=== PATIENT | male | born 1970 | race Caucasian/White ===

== ENCOUNTER 2023-02-24 00:34 | Emergency (ER) | payer OTHER, SELFPAY ==
[2023-02-24 00:37] VITALS: BP 180/100; PULSE 99; RESP 16; TEMP 36.4; O2SAT 98; BMI 22.0
--- NOTE | 2023-02-24 00:56 | XR_ITS ---
The [address] [address] Patient Name: JULIENNE GALINDO MRN: [id number] date: 1970 Sex: M Assigned Patient Location: ER Current Patient Location: Accession/Order Number: [id number] Exam Date: 02/24/2023 01:00 Report Date: 02/24/2023 01:51 At the request of: KIZZY MARKER Procedure: XR ankle LT 2V XR foot LT min 3V, XR ankle LT 2V: HISTORY: felt a pop in left foot felt a pop in left foot COMPARISON: None available. TECHNIQUE: 2 left ankle and 3 left foot views are submitted. FINDINGS: Left foot: No definitive acute fractures identified in the left foot. There is an acute avulsion fracture arising from the distal tip of the left fibula which is better evaluated on the left foot x-ray. There is degeneration of the first tarsometatarsal joint and first metatarsophalangeal joint. There is soft tissue swelling. Left ankle: The acute avulsion fracture of the distal left fibula is better evaluated on the left foot x-ray from the same day. The remaining osseous structures of the left ankle are grossly unremarkable. There is diffuse soft tissue swelling. XR/XR ankle LT 2V IMPRESSION: Findings are consistent with an acute avulsion fracture of the distal fibula which is better appreciated on the left foot x-ray. Electronically authenticated by: CHIRAG AKHTAR Date: 02/24/2023 01:51
--- NOTE | 2023-02-24 00:56 | XR_ITS ---
The [address] [address] Patient Name: JULIENNE GALINDO MRN: [id number] date: 1970 Sex: M Assigned Patient Location: ER Current Patient Location: Accession/Order Number: [id number] Exam Date: 02/24/2023 01:00 Report Date: 02/24/2023 01:51 At the request of: KIZZY MARKER Procedure: XR foot LT min 3V XR foot LT min 3V, XR ankle LT 2V: HISTORY: felt a pop in left foot felt a pop in left foot COMPARISON: None available. TECHNIQUE: 2 left ankle and 3 left foot views are submitted. FINDINGS: Left foot: No definitive acute fractures identified in the left foot. There is an acute avulsion fracture arising from the distal tip of the left fibula which is better evaluated on the left foot x-ray. There is degeneration of the first tarsometatarsal joint and first metatarsophalangeal joint. There is soft tissue swelling. Left ankle: The acute avulsion fracture of the distal left fibula is better evaluated on the left foot x-ray from the same day. The remaining osseous structures of the left ankle are grossly unremarkable. There is diffuse soft tissue swelling. XR/XR foot LT min 3V IMPRESSION: Findings are consistent with an acute avulsion fracture of the distal fibula which is better appreciated on the left foot x-ray. Electronically authenticated by: CHIRAG AKHTAR Date: 02/24/2023 01:51
--- NOTE | 2023-02-24 00:57 | ED.LOWEXI1 ---
HPI - Extremity Injury (Lower) General Chief Complaint: Extremity Injury, Lower Stated Complaint: L FOOT INJURY Time Seen by Provider: 02/24/23 00:49 Source: patient Mode of arrival: walk-in Limitations: no limitations History of Present Illness HPI Narrative: This 53-year-old male presents for evaluation of left foot and ankle pain. The patient states he has bbeen having some left foot pain for the past several weeks and today stepped up on a platform at work and felt a popping sensation. He states he felt like the back portion of his foot and heel was ripped off. He thinks that he tore his Achilles tendon. He states he saw black when he felt a popping sensation did not pass out or fall. He has pain across the mid foot and posterior aspect of the ankle. No additional injuries or complaints. His brother drove him to the emergency department. Related Data Allergies Allergy/AdvReac Type Severity Reaction Status Date / Time No Known Drug Allergies Allergy Verified 02/24/23 00:43 Review of Systems ROS Status of ROS 10 or more systems reviewed and unremarkable except as noted in history and below [facility] Social History Smoking status: Current every day smoker Exam Narrative Exam Narrative: Nurses note and vital signs reviewed and patient is not hypoxic. Blood pressure was noted to be elevated at 180/100. General: Thin, uncomfortable appearing adult male, no respiratory distress Skin: Warm, dry, no pallor noted. There is no rash noted. Head: Normocephalic, atraumatic Eye: Normal conjunctiva, no drainage, EOMI. PERRL Cardiovascular: Regular Rate and Rhythm Respiratory: Patient is in no distress, no accessory muscle use, lungs are clear to auscultation, no wheezing, rales or rhonchi Back: non-tender, no CVA tenderness bilaterally to percussion. Musculoskeletal: There Is mild lower extremity swelling on both legs at the patient's sock line. There Tenderness across the mid foot including the base of the 5th metatarsal and arch, there is tenderness in the posterior heel but no notable Achilles injury or swelling above the Achilles insertion. Patient states he has pain in his foot with movement of his toes and was reluctant to move his toes but was to move his toes at my request. Feet are warm and sensate, dorsalis pedis and posterior tibialis pulses are brisk and equal bilaterally, Jay test is negative Neurological: A&O x4, normal speech Psychiatric: Cooperative, anxious Constitutional Vital Signs, click to edit/add: Last Vital Signs Temp 97.6 F 02/24/23 00:37 Pulse 99 H 02/24/23 00:37 Resp 16 02/24/23 00:37 BP 180/100 H 02/24/23 00:37 Pulse Ox 98 02/24/23 00:37 O2 Del Method Room Air 02/24/23 00:37 Course Vital Signs Vital signs: Vital Signs Temperature 97.6 F 02/24/23 00:37 Pulse Rate 99 H 02/24/23 00:37 Respiratory Rate 16 02/24/23 00:37 Blood Pressure 180/100 H 02/24/23 00:37 Pulse Oximetry 98 02/24/23 00:37 Oxygen Delivery Method Room Air 02/24/23 00:37 Temperature 97.6 F 02/24/23 00:37 Pulse Rate 99 H 02/24/23 00:37 Respiratory Rate 16 02/24/23 00:37 Blood Pressure 180/100 H 02/24/23 00:37 Pulse Oximetry 98 02/24/23 00:37 Oxygen Delivery Method Room Air 02/24/23 00:37 MDM - Extremity Injury (Lower) MDM Narrative Medical decision making narrative: 53-year-old male, smoker, presents for evaluation of left foot pain. He has pain in the midfoot and posterior heel area. He states he was stepping onto a platform at work when he felt a popping sensation. He thought that he had torn his Achillles tendon. His Achilles tendon is intact with no palpable deformity in the area, he has a negative times test. He does have some mild swelling of both lower extremities. He is tender across the midfoot and base of the 5th metatarsal. X-ray of the foot and ankle was reviewed by myself and does not show any fracture, dislocation or other notable deformity. He was medicated in emergency department with a Percocet and Zofran. Brother will be driving him home. He will be placed in an Bryan wrap and postop shoe. He declines the need for crutches at this time. He will be referred to outpatient podiatry for further evaluation and treatment. Clinically his symptoms are likely related to a foot/ankle sprain. He is neurovascularly intact with normal sensation, feet are warm and sensate and pulses are brisk and equal bilaterally. Discharge Plan Discharge Chief Complaint: Extremity Injury, Lower Clinical Impression: Foot sprain Patient Disposition: Home, Self-Care Time of Disposition Decision: 01:21 Condition: Good Instructions: How to Use an Elastic Bandage (ED), Foot Sprain (ED), Ice Pack Application (ED), Cold Compress or Soak (ED), Post Surgical Shoe (ED) Additional Instructions: Follow up with outpatient podiatry as soon as possible. Stand Alone Forms: Portal Instructions Referrals: Physician,Non-Staff, MD [Primary Care Provider] - As soon as possible
[2023-02-24] MEDS: ONDANSETRON 4 MG RAPDIS TABLET SL (01:05)
[2023-02-24] MEDS: OXYCODONE HCL/ACETAMINOPHEN 5MG/325MG 1 TAB PO (01:05)
== END 2023-02-24 01:40 | disposition home or self-care (01) ==
PROVIDERS: Emergency Provider Emergency Medicine
DX: S93.602A Unspecified sprain of left foot, initial encounter (principal); X58.XXXA Exposure to other specified factors, initial encounter; F17.210 Nicotine dependence, cigarettes, uncomplicated
CPT/HCPCS: 73600; 73630; 99284

== ENCOUNTER 2023-03-12 12:41 | Outpatient (OUT) | payer OTHER, SELFPAY ==
--- NOTE | 2023-03-12 | XR_ITS ---
The [address] [address] Patient Name: JULIENNE GALINDO MRN: [id number] date: 1970 Sex: M Assigned Patient Location: [facility] Current Patient Location: [facility] Accession/Order Number: [id number] Exam Date: 03/12/2023 11:45 Report Date: 03/12/2023 16:23 At the request of: JUDI RICKETTS Procedure: XR ankle LT min 3V EXAM: XR ankle LT min 3V HISTORY: LEFT ANKLE INJURY COMPARISON: 02/24/2023. TECHNIQUE: 3 views left ankle joint. FINDINGS: Diffuse soft tissue swelling and edema left ankle. Previous distal fibular fracture seen on recent prior foot radiographs not well seen today and probably occult. No other acute fracture, dislocation or bone destruction. Small chronic ununited ossifications at the inferior margin of the medial malleolus. Ankle mortise is maintained. XR/XR ankle LT min 3V IMPRESSION: Previous distal fibular fracture not well seen today. No interval fracture seen. Soft tissue edema without other acute fracture left ankle. Electronically authenticated by: SAMARA JOSÉ Date: 03/12/2023 16:23
--- NOTE | 2023-03-12 | XR_ITS ---
The [address] [address] Patient Name: JULIENNE GALINDO MRN: [id number] date: 1970 Sex: M Assigned Patient Location: [facility] Current Patient Location: [facility] Accession/Order Number: [id number] Exam Date: 03/12/2023 12:00 Report Date: 03/12/2023 16:34 At the request of: JUDI RICKETTS Procedure: XR tibia fibula LT 2V EXAM: XR tibia fibula LT 2V TECHNIQUE: AP and lateral views left lower leg HISTORY: LEFT ANKLE INJURY COMPARISON: None. FINDINGS: No acute fracture or dislocation. Diffuse soft tissue edema of the lower leg. Chronic fragmentation at the anterior tibial tuberosity. XR/XR tibia fibula LT 2V IMPRESSION: No acute fracture Electronically authenticated by: QING SANDERS Date: 03/12/2023 16:34
--- NOTE | 2023-03-12 | XR_ITS ---
The [address] [address] Patient Name: JULIENNE GALINDO MRN: [id number] date: 1970 Sex: M Assigned Patient Location: [facility] Current Patient Location: [facility] Accession/Order Number: [id number] Exam Date: 03/12/2023 11:45 Report Date: 03/12/2023 16:22 At the request of: JUDI RICKETTS Procedure: XR foot LT min 3V EXAM: XR foot LT min 3V HISTORY: LEFT FOOT INJURY COMPARISON: 02/24/2023. TECHNIQUE: 3 views left foot. FINDINGS: Diffuse soft tissue edema left foot especially over the dorsum of the foot. No fracture or dislocation. No bone destruction. Chronic foreshortening of the first ray, at developmental/dysplastic. Mild degenerative change of the great toe MTP joint and mild to moderate of the midfoot. No radiopaque foreign body. XR/XR foot LT min 3V IMPRESSION: Diffuse soft tissue swelling and edema without acute bony process left foot. Previous distal fibular fracture not readily identified. Electronically authenticated by: SAMARA JOSÉ Date: 03/12/2023 16:22
--- NOTE | 2023-03-12 12:47 | US_ITS ---
The [address] [address] Patient Name: JULIENNE GALINDO MRN: [id number] date: 1970 Sex: M Assigned Patient Location: [facility] Current Patient Location: [facility] Accession/Order Number: [id number] Exam Date: 03/12/2023 12:57 Report Date: 03/12/2023 13:35 At the request of: JUDI RICKETTS Procedure: US venous doppler LE LT EXAM: US venous doppler LE LT HISTORY: Leg Swelling COMPARISON: None. TECHNIQUE: Evaluation of the deep veins of the left lower extremity was performed utilizing B-mode, color flow and spectral analysis. FINDINGS: The visualized vessels comprising the deep venous systems from the common femoral vein through the calf veins demonstrate appropriate compressibility, spontaneous color Doppler flow, and augmentation of flow on spectral Doppler with distal compression. Additional findings: Lower extremity edema is noted. US/US venous doppler LE LT IMPRESSION: No sonographic evidence of deep venous thrombosis of the left lower extremity. Electronically authenticated by: ISAI MORE Date: 03/12/2023 13:35
== END 2023-03-12 12:42 | disposition home or self-care (01) ==
LOC: RAD 12:41
PROVIDERS: Visit Provider Physician Assistant
DX: M25.572 Pain in left ankle and joints of left foot (principal); M79.672 Pain in left foot
CPT/HCPCS: 73590; 73610; 73630; 93971